=== PATIENT | female | born 1970 | race Caucasian/White ===

== ENCOUNTER → 2017-10-23 | Outpatient (CLI) | payer BC ==
--- NOTE | 2017-10-23 14:15 | US ---
EXAM DESCRIPTION: Gall Bladder CLINICAL HISTORY: RIGHT UPPER QUADRANT PAIN COMPARISON: No comparisons available at this institution. TECHNIQUE: Routine sonographic images of the right upper quadrant of the abdomen were acquired and submitted for review. FINDINGS: Liver: Size- normal Echogenicity- normal Mass- none Bile ducts- intrahepatic and extrahepatic bile ducts not dilated with common bile duct measuring 0.3 cm. Gallbladder: normal Pancreas: head and body appear normal; tail obscured by bowel gas Right kidney: normal Aorta & Inferior vena cava: visualized portions appear normal Ascites: none IMPRESSION: Unremarkable right upper quadrant ultrasound. Electronically signed by: Shaan Pinzon MD 10/23/2017 2:14 PM CDT
== END ==
LOC: US 09:34
PROVIDERS: ATTEND Family Medicine
DX: R10.11 Right upper quadrant pain (principal)

== ENCOUNTER 2017-11-20 06:45 | Emergency (ER) | payer BC ==
[2017-11-20 07:00] VITALS: TEMP 98; O2SAT 100
--- NOTE | 2017-11-20 07:50 | ED.PDOC ---
History of Present Illness - General Chief Complaint: Abdominal Pain Stated Complaint: abdominal pain Time Seen by Provider: 11/20/17 07:42 Information Source: patient, family Exam Limitations: no limitations - History of Present Illness Initial Comments: Tressa Aleman 47 y/o female stated that she had left sided sharp abdominal pains for the last 6-8 MONTHS which comes and goes non radiating not aggravated by eating,BM,URINATING and for the last 4 days pain symptoms more intense with nausea,no vomiting,no diarrhea,no hematuria,no weight loss,no fever,no melena.Still able to eat. Had Abdominal sono-negative. Abdominal Pain Onset Location: other - left side abdomen Pain Radiation: no radiation Quality: moderate, sharpness Timing/Duration: getting worse Improving Factors: nothing Worsening Factors: nothing Associated Symptoms: denies symptoms, other - see hpi Review of Systems - Review of Systems Constitutional: States: no symptoms reported EENTM: States: no symptoms reported Respiratory: States: no symptoms reported Cardiology: States: no symptoms reported Gastrointestinal/Abdominal: States: see HPI Genitourinary: States: no symptoms reported All other Systems: Reviewed and Negative, No Change from Baseline Past Medical History (General) - Patient Medical History Hx Seizures: No Hx Stroke: No Hx Dementia: No Hx Asthma: No Hx of COPD: No Hx Cardiac Disorders: Yes - heart attack, stents Hx Congestive Heart Failure: No Hx Pacemaker: No Hx Hypertension: Yes Hx Thyroid Disease: No Hx Diabetes: No Hx Gastroesophageal Reflux: No Hx Renal Disease: No Hx MRSA: Yes - Abdomen 2008 MRSA Source:: Wound Surgical History: other - btl,endometrial ablation - Social History Hx Tobacco Use: No Hx Alcohol Use: Yes - socially Hx Physical Abuse: No Hx Emotional Abuse: No - Female History Patient : No Family Medical History - Family History Mother Family History: Unknown Hx Cardiac Disease: Yes - parents Physical Exam - Physical Exam General Appearance: Alert, Anxious, No apparent distress Eyes, Ears, Nose, Throat Exam: normal ENT inspection Neck: non-tender, full range of motion, supple Respiratory: lungs clear, normal breath sounds, no respiratory distress Cardiovascular/Chest: normal peripheral pulses, regular rate, rhythm, no murmur Peripheral Pulses: No deficit Gastrointestinal/Abdominal: normal bowel sounds, soft, no organomegaly, tenderness - left side abdomen no peritoneal signs Back Exam: no CVA tenderness, no vertebral tenderness Extremity: no pedal edema, no calf tenderness Neurologic: no motor/sensory deficits, alert, oriented x 3 Skin Exam: normal color, warm/dry Progress - Progress Progress: 11/20/17 09:14 Vital Signs - 8 hr 11/20/17 11/20/17 06:51 08:40 Temperature 98.0 F 98.0 F Pulse Rate [ 59 L 51 L monitor] Respiratory 20 20 Rate Blood Pressure 159/88 152/73 [Left Arm] O2 Sat by Pulse 100 100 Oximetry 11/20/17 09:27 Patient labs,chest x ray ,abdominal ct discussed with patient no acute abnormalities note explained to jose referral to GI specialist to find out more what is causing her symptoms - Results/Orders Results/Orders: 11/20/17 07:57 Hold Metformin x 48Hrs [id number] Laboratory Results - last 24 hr 11/20/17 11/20/17 11/20/17 07:26 07:26 07:26 WBC 14.0 H RBC 4.79 Hgb 14.1 Hct 41.7 MCV 87.1 MCH 29.4 MCHC 33.8 RDW 13.7 Plt Count 261 MPV 9.9 Absolute Neuts (auto) 10.70 H Absolute Lymphs (auto) 2.30 Absolute Monos (auto) 0.90 H Absolute Eos (auto) 0.10 Absolute Basos (auto) 0.10 Neutrophils % 76.1 Lymphocytes % 16.5 L Monocytes % 6.4 Eosinophils % 0.4 L Basophils % 0.6 PT INR PTT (SP) Sodium 137 Potassium 3.6 Chloride 106 Carbon Dioxide 23 Anion Gap 11.6 L BUN 15 Creatinine 0.76 BUN/Creatinine Ratio 19.7 Random Glucose 134 H Serum Osmolality 276.6 Calcium 9.1 Total Bilirubin 0.4 Direct Bilirubin AST 23 ALT 22 Alkaline Phosphatase 67 Creatine Kinase 58 CK-MB (CK-2) 1.6 CK-MB (CK-2) % Not Reportable Troponin I < 0.02 Serum Total Protein 6.8 Albumin 4.0 Globulin 2.8 Albumin/Globulin Ratio 1.4 Lipase Urine Color Urine Appearance Urine pH Ur Specific [place] Urine Protein Urine Glucose (UA) Urine Ketones Urine Blood Urine Nitrite Urine Bilirubin Urine Urobilinogen Ur Leukocyte Esterase Urine RBC Urine WBC Ur Epithelial Cells Urine Bacteria Urine Mucus Urine HCG, Qual Urine Opiates Screen Urine Barbiturates Ur Phencyclidine Scrn U Amphetamin/Meth Scrn U Benzodiazepines Scrn U Cocaine Metab Screen U Cannabinoids Screen 11/20/17 11/20/17 11/20/17 07:28 07:35 07:35 WBC RBC Hgb Hct MCV MCH MCHC RDW Plt Count MPV Absolute Neuts (auto) Absolute Lymphs (auto) Absolute Monos (auto) Absolute Eos (auto) Absolute Basos (auto) Neutrophils % Lymphocytes % Monocytes % Eosinophils % Basophils % PT INR PTT (SP) Sodium Potassium Chloride Carbon Dioxide Anion Gap BUN Creatinine BUN/Creatinine Ratio Random Glucose Serum Osmolality Calcium Total Bilirubin Direct Bilirubin AST ALT Alkaline Phosphatase Creatine Kinase CK-MB (CK-2) CK-MB (CK-2) % Troponin I Serum Total Protein Albumin Globulin Albumin/Globulin Ratio Lipase Urine Color Yellow Urine Appearance Sl cloudy Urine pH 7.0 Ur Specific [place] 1.025 Urine Protein 30 Urine Glucose (UA) Negative Urine Ketones Trace Urine Blood Negative Urine Nitrite Negative Urine Bilirubin Negative Urine Urobilinogen 0.2 Ur Leukocyte Esterase Negative Urine RBC 0 Urine WBC 0-1 Ur Epithelial Cells 1-3 Urine Bacteria 1+ Urine Mucus Small Urine HCG, Qual Negative Urine Opiates Screen Positive H Urine Barbiturates Negative Ur Phencyclidine Scrn Negative U Amphetamin/Meth Scrn Negative U Benzodiazepines Scrn Negative U Cocaine Metab Screen Negative U Cannabinoids Screen Positive H 11/20/17 11/20/17 07:55 08:13 WBC RBC Hgb Hct MCV MCH MCHC RDW Plt Count MPV Absolute Neuts (auto) Absolute Lymphs (auto) Absolute Monos (auto) Absolute Eos (auto) Absolute Basos (auto) Neutrophils % Lymphocytes % Monocytes % Eosinophils % Basophils % PT 12.3 INR 1.060 PTT (SP) 31.1 Sodium Potassium Chloride Carbon Dioxide Anion Gap BUN Creatinine BUN/Creatinine Ratio Random Glucose Serum Osmolality Calcium Total Bilirubin Direct Bilirubin < 0.1 AST ALT Alkaline Phosphatase Creatine Kinase CK-MB (CK-2) CK-MB (CK-2) % Troponin I Serum Total Protein Albumin Globulin Albumin/Globulin Ratio Lipase 21 L Urine Color Urine Appearance Urine pH Ur Specific [place] Urine Protein Urine Glucose (UA) Urine Ketones Urine Blood Urine Nitrite Urine Bilirubin Urine Urobilinogen Ur Leukocyte Esterase Urine RBC Urine WBC Ur Epithelial Cells Urine Bacteria Urine Mucus Urine HCG, Qual Urine Opiates Screen Urine Barbiturates Ur Phencyclidine Scrn U Amphetamin/Meth Scrn U Benzodiazepines Scrn U Cocaine Metab Screen U Cannabinoids Screen - EKG/XRAY/CT XRAY: chest - no acut abnormality CT Ordered: Yes - abd/pelvis-no acute abnormalities Departure - Departure Clinical Impression: Abdominal pain Qualifiers: Abdominal location: unspecified location Qualified Code(s): R10.9 - Unspecified abdominal pain Time of Disposition: :31 Disposition: Discharge to Home or Self Care Condition: Good Departure Forms: ED Discharge - Pt. Copy, Patient Portal Self Enrollment Instructions: DI for Abdominal Pain-Adult Diet: other - avoid greasy/spicy foods Referrals: Ben Be MD [Primary Care Provider] - 1-2 Weeks Prescriptions: Gabapentin 300 mg PO BEDTIME #14 cap Home Medications: Ambulatory Orders Amoxicillin & Pot Clavulanate [Augmentin Tab] 11/20/17 Aspirin [Aspirin Adult Low Dose] 81 mg PO 11/20/17 Atorvastatin Calcium [Lipitor] 40 mg PO 11/20/17 Gabapentin 300 mg PO BEDTIME #14 cap 11/20/17 Metoprolol Succinate [Metoprolol Succinate ER] 25 mg 11/20/17 Sertraline HCl [Sertraline HCl] 100 mg 11/20/17 Verapamil HCl [Verapamil HCl Sr] 120 mg 11/20/17 Additional Instructions: Follow up with primary Md 26 November 2017
[2017-11-20] MEDS ORDERED: MORPHINE SULFATE INJ 10 MG/ML VIAL IV ONE (07:55)
[2017-11-20] MEDS ORDERED: LACTATED RINGERS 1,000 ML IVS ONE (07:55)
[2017-11-20] MEDS ORDERED: PROMETHAZINE HCL INJ 25 MG/ML VIAL IM ONE (07:55)
--- NOTE | 2017-11-20 08:23 | RAD ---
Study: Single Frontal View of the Chest. Indication:pain Comparison: February 14, 2012. Impression: Heart size normal. Lungs clear. No acute osseous abnormality. Electronically signed by: Ramana Ragland MD 11/20/2017 8:22 AM CDT
--- NOTE | 2017-11-20 09:02 | CT ---
Study: CT abdomen and pelvis. Indication: pain Technique: Venous and delayed phase CT imaging of the abdomen and pelvis obtained after intravenous administration of contrast. This exam was performed according to our departmental dose-optimization program, which includes automated exposure control, adjustment of the mA and/or kV according to patient size and/or use of iterative reconstruction technique. Comparison: None. Findings: Lower chest, liver, gallbladder, pancreas, spleen, adrenal glands, kidneys, bladder, uterus, and bilateral adnexa are unremarkable. Trace free pelvic fluid. Stomach, small bowel, colon, and appendix unremarkable. No free fluid. No free air. No pathologically enlarged lymphadenopathy. Atherosclerosis aorta. No acute osseous abnormality. Impression: No CT evidence of acute abdominal or pelvic process. Trace free pelvic fluid. Atherosclerosis. Electronically signed by: Ramana Ragland MD 11/20/2017 9:00 AM CDT
[2017-11-20 09:42] VITALS: BP 154/82
== END 2017-11-20 09:44 | disposition home or self-care (01) ==
LOC: ER 06:45
DX: R10.9 Unspecified abdominal pain (principal); R11.0 Nausea; I25.2 Old myocardial infarction; I10 Essential (primary) hypertension; Z98.61 Coronary angioplasty status
CPT/HCPCS: 36415; 71045; 74177; 80053; 80307; 81001; 81025; 82248; 82550; 82553; 83690; 84484; 85025; 85610; 85730; J2270; J2550; J7120

== ENCOUNTER → 2018-03-27 | Outpatient (CLI) | payer BC ==
--- NOTE | 2018-03-27 16:28 | NM ---
EXAM DESCRIPTION: Hepatobiliary w/o CCK: Nuclear Medicine. CLINICAL HISTORY: RUQ PAIN COMPARISON: None. TECHNIQUE: Patient was given 7.8 mCi of technetium 99 M mebrofenin (Choletec) radiopharmaceutical IV. Anterior gamma camera images were obtained of the right upper quadrant at 1 minute intervals for one hour . The patient was then given 8 ounces ensure plus fatty meal with 11 fat g. Gallbladder ejection fraction was evaluated by measuring diminishing radioactivity in the gallbladder, over 30 min interval. FINDINGS: After administration of reniform cervical IV, the liver was well-visualized in all segments. Timely visualization of intrahepatic ducts, gallbladder, extrahepatic ducts, and intestine. After patient ingested fatty meal, no reproduction of symptoms. After counts were obtained for 30 minutes in the gallbladder, the decrease in activity over this interval was 50%. IMPRESSION: 1. No intrahepatic or extrahepatic biliary obstruction. Gallbladder and intestine were visualized. 2. Gallbladder ejection fraction was 50% which is well above the low normal value of 35%. Electronically signed by: Rey Curran MD 03/27/2018 4:27 PM CDT
== END ==
LOC: NM 09:54
PROVIDERS: ATTEND Family Medicine
DX: R11.10 Vomiting, unspecified (principal); R10.12 Left upper quadrant pain
CPT/HCPCS: 78226; A9537

== ENCOUNTER → 2018-05-23 | Outpatient (CLI) | payer BC ==
--- NOTE | 2018-05-23 10:36 | RAD ---
Three-view right hand. 4 view right wrist. Three-view left hand. 4 view left wrist. Indication: PAIN IN BILATERAL HANDS AND WRISTS Comparison: None. Impression: No acute fracture or malalignment of the left hand/wrist or right hand/wrist. No osseous erosions or periarticular osteopenia of either hand or wrist. There is mild joint space narrowing throughout the PIP and DIP joints of the bilateral hands. Trace negative ulnar variance bilaterally. Soft tissues are intact without radiopaque foreign body. Electronically signed by: Ramana Ragland MD 05/23/2018 10:35 AM [facility]
--- NOTE | 2018-05-23 10:37 | RAD ---
Three-view right hand. 4 view right wrist. Three-view left hand. 4 view left wrist. Indication: PAIN IN BILATERAL HANDS AND WRISTS Comparison: None. Impression: No acute fracture or malalignment of the left hand/wrist or right hand/wrist. No osseous erosions or periarticular osteopenia of either hand or wrist. There is mild joint space narrowing throughout the PIP and DIP joints of the bilateral hands. Trace negative ulnar variance bilaterally. Soft tissues are intact without radiopaque foreign body. Electronically signed by: Ramana Ragland MD 05/23/2018 10:35 AM [facility]
--- NOTE | 2018-05-23 10:37 | RAD ---
Three-view right hand. 4 view right wrist. Three-view left hand. 4 view left wrist. Indication: PAIN IN BILATERAL HANDS AND WRISTS Comparison: None. Impression: No acute fracture or malalignment of the left hand/wrist or right hand/wrist. No osseous erosions or periarticular osteopenia of either hand or wrist. There is mild joint space narrowing throughout the PIP and DIP joints of the bilateral hands. Trace negative ulnar variance bilaterally. Soft tissues are intact without radiopaque foreign body. Electronically signed by: Ramana Ragland MD 05/23/2018 10:35 AM [facility]
--- NOTE | 2018-05-23 10:37 | RAD ---
Three-view right hand. 4 view right wrist. Three-view left hand. 4 view left wrist. Indication: PAIN IN BILATERAL HANDS AND WRISTS Comparison: None. Impression: No acute fracture or malalignment of the left hand/wrist or right hand/wrist. No osseous erosions or periarticular osteopenia of either hand or wrist. There is mild joint space narrowing throughout the PIP and DIP joints of the bilateral hands. Trace negative ulnar variance bilaterally. Soft tissues are intact without radiopaque foreign body. Electronically signed by: Ramana Ragland MD 05/23/2018 10:35 AM [facility]
== END ==
LOC: RAD 08:54
PROVIDERS: ATTEND Orthopaedic Surgery
DX: M79.641 Pain in right hand (principal); M79.642 Pain in left hand; M25.531 Pain in right wrist; M25.532 Pain in left wrist

== ENCOUNTER 2018-05-28 05:59 | Day surgery (SDC) | payer BC ==
[2018-05-28] MEDS ORDERED: SODIUM CHL 0.9% 100ML MINI-BAG 100 ML IVPB ONE (06:05)
[2018-05-28] MEDS ORDERED: LACTATED RINGERS 1,000 ML ONE (06:05)
[2018-05-28] MEDS ORDERED: ceFAZolin SODIUM 1 GM VIAL ONE ×2 (06:05→08:20)
[2018-05-28] MEDS ORDERED: BUPIVACAINE 0.25% INJ 30 ML VIAL INJ ONE (08:19)
[2018-05-28] MEDS ORDERED: LIDOCAINE 1% 10 ML VIAL INJ ONE (08:20)
[2018-05-28] MEDS ORDERED: VANCOMYCIN HCL INJ 1,000 MG VIAL IVPB ONE (08:20)
[2018-05-28] MEDS ORDERED: MIDAZOLAM INJ 2 MG/2 ML VIAL ONE (09:17)
[2018-05-28] MEDS ORDERED: fentaNYL CITRATE INJ 50 MCG/ML AMP ONE (09:17)
[2018-05-28] MEDS ORDERED: PROPOFOL 200 MG/20 ML VIAL IV ONE (10:00)
[2018-05-28 10:15] VITALS: TEMP 97.1
[2018-05-28 11:04] VITALS: BP 163/79; O2SAT 98
--- NOTE | 2018-05-30 13:26 | OP ---
DATE OF PROCEDURE: 05/28/18 PREOPERATIVE DIAGNOSIS: 1. Carpal tunnel syndrome. POSTOPERATIVE DIAGNOSIS: 1. Carpal tunnel syndrome. PROCEDURE: 1. Carpal tunnel release. SURGEON: Marshal Carroll MD. CONCRETE VAULT MAKER: Rey Pierre CST, SA-C. ANESTHESIA: Local with sedation. COMPLICATIONS: None. FINDINGS: Thickening of the transverse carpal ligament. INDICATION: Ms. Aleman has a history of ongoing and worsening numbness in the distribution of the median nerve. She has tried conservative measures, however, has failed to gain relief. Because of her ongoing symptoms, she has requested operative intervention. After discussing the risks, benefits and alternatives to that, the patient has given informed consent for carpal tunnel release. PROCEDURE: The patient was brought to the Operating Room and placed in the supine position. Sedation was administered and local anesthetic was injected into the operative area under sterile conditions. After the injection of anesthetic, the arm was sterilely prepped and draped. A longitudinal incision was made directly overlying the transverse carpal ligament and blunt dissection was carried down to the ligament. The transverse carpal ligament was sharply transected along its length and a Dalzell elevator was used to ensure complete release of the ligament. Once release had been confirmed, the wound was thoroughly irrigated and the wound was closed with Nylon suture. A sterile dressing was placed and the patient was taken to the Day Surgery Unit. POSTOPERATIVE PLAN: The patient has been encouraged to do range of motion of the digits and will followup with us in two days. #[id number] MTDD
== END 2018-05-28 10:50 | disposition home or self-care (01) ==
LOC: AMB 05:59
PROVIDERS: ATTEND Orthopaedic Surgery
DX: G56.01 Carpal tunnel syndrome, right upper limb (principal); I25.10 Atherosclerotic heart disease of native coronary artery without angina pectoris; I10 Essential (primary) hypertension; I25.2 Old myocardial infarction; Z95.5 Presence of coronary angioplasty implant and graft; Z88.8 Allergy status to other drugs, medicaments and biological substances; Z79.82 Long term (current) use of aspirin; Z79.899 Other long term (current) drug therapy
CPT/HCPCS: 01810; 64721; 80307; 87070; J0690; J2250; J3010; J3370; J3490; J7050; J7120

== ENCOUNTER 2018-06-07 05:55 | Day surgery (SDC) | payer BC ==
--- NOTE | 2018-06-06 12:38 | HP ---
CHIEF COMPLAINT: Left hand numbness and pain. HISTORY OF PRESENT ILLNESS: Tressa is a 47-year-old female with a history of numbness and pain in the hand. She has undergone right carpal tunnel release and is requesting left carpal tunnel release. After discussing the risks, benefits and alternatives to that, she has given informed consent. PAST SURGICAL HISTORY: 1. Cardiac stent placement. 2. Endometrial ablation. 3. Right carpal tunnel release. MEDICATIONS: 1. Aspirin. 2. Verapamil. 3. Metoprolol. 4. Lipitor. 5. Zoloft. ALLERGIES: CIPRO. CODE STATUS: Full code. IMMUNIZATIONS: Up to date. FAMILY HISTORY: None pertinent to today's complaint. SOCIAL HISTORY: The patient does not drink, smoke or use any illicit drugs. REVIEW OF SYSTEMS: Negative except as indicated in the History of Present Illness. PHYSICAL EXAMINATION: VITAL SIGNS: Blood pressure 130/70. Pulse 60. Height 5'4". Weight 190 pounds. MENTAL STATUS: The patient is awake, alert, and is able to give a good history and participate in the physical. The patient is oriented to person, place and time. SKIN: Normal tone and turgor. MUSCULOSKELETAL: She has positive carpal compression test. She has intact strength and the hand is warm and well perfused. She has no deformity or malalignment. She does have some slight thenar atrophy. She has full abduction strength and negative Tinel's at the elbow. ASSESSMENT: 1. Carpal tunnel syndrome. PLAN: The plan at this point is for carpal tunnel release. We have discussed the risks, benefits, and alternatives to that and the patient has given informed consent. #[id number] [facility]
[2018-06-07] MEDS ORDERED: SODIUM CHL 0.9% 100ML MINI-BAG 100 ML IVPB ONE (07:32)
[2018-06-07] MEDS ORDERED: LACTATED RINGERS 1,000 ML ONE (07:33)
[2018-06-07] MEDS ORDERED: ceFAZolin SODIUM 1 GM VIAL ONE ×2 (07:33→10:59)
[2018-06-07] MEDS ORDERED: PROPOFOL 200 MG/20 ML VIAL IV ONE (10:00)
[2018-06-07] MEDS ORDERED: LIDOCAINE 1% 10 ML VIAL INJ ONE ×2 (10:00→10:59)
[2018-06-07] MEDS ORDERED: VANCOMYCIN HCL INJ 1,000 MG VIAL IVPB ONE (10:59)
[2018-06-07] MEDS ORDERED: BUPIVACAINE 0.25% INJ 30 ML VIAL INJ ONE (10:59)
[2018-06-07] MEDS ORDERED: fentaNYL CITRATE INJ 50 MCG/ML AMP ONE (11:10)
[2018-06-07] MEDS ORDERED: MIDAZOLAM INJ 2 MG/2 ML VIAL ONE ×2 (11:10→11:17)
[2018-06-07 12:27] VITALS: BP 138/74; TEMP 97; O2SAT 100
--- NOTE | 2018-06-13 09:12 | OP ---
DATE OF PROCEDURE: 06/07/18 PREOPERATIVE DIAGNOSIS: 1. Carpal tunnel syndrome, left hand. POSTOPERATIVE DIAGNOSIS: 1. Carpal tunnel syndrome, left hand. PROCEDURE: 1. Carpal tunnel release, left hand. SURGEON: Marshal Carroll MD. MEDICAL MANAGEMENT SPECIALIST: Rey Pierre CST, SA-C. ANESTHESIA: Local with sedation. COMPLICATIONS: None. FINDINGS: Thickening of the transverse carpal ligament and narrowing of the median nerve across the carpal tunnel. INDICATION: Ms. Aleman has a history of pain and numbness in the hand. Secondary to ongoing pain and numbness, she has requested operative intervention. After discussing the risks, benefits and alternatives to that, the patient has given informed consent for carpal tunnel release. PROCEDURE: The patient was brought to the Operating Room and placed in the supine position. Sedation was administered and local anesthetic was injected into the operative area under sterile conditions. After the injection of anesthetic, the arm was sterilely prepped and draped. A longitudinal incision was made directly overlying the transverse carpal ligament and blunt dissection was carried down to the ligament. The transverse carpal ligament was sharply transected along its length and a Marshall elevator was used to ensure complete release of the ligament. Once release had been confirmed, the wound was thoroughly irrigated and the wound was closed with Nylon suture. A sterile dressing was placed and the patient was taken to the Day Surgery Unit. POSTOPERATIVE PLAN: The patient has been encouraged to do range of motion of the digits and will followup with us in two days. #[id number] MTDD
== END 2018-06-07 12:30 | disposition home or self-care (01) ==
LOC: AMB 05:55
PROVIDERS: ATTEND Orthopaedic Surgery
DX: G56.02 Carpal tunnel syndrome, left upper limb (principal); I10 Essential (primary) hypertension; E66.9 Obesity, unspecified; Z88.8 Allergy status to other drugs, medicaments and biological substances; Z95.5 Presence of coronary angioplasty implant and graft; Z79.82 Long term (current) use of aspirin; Z79.899 Other long term (current) drug therapy
CPT/HCPCS: 01810; 64721; 80307; 81025; 87070; J0690; J2250; J3010; J3370; J3490; J7050; J7120

== ENCOUNTER → 2019-12-04 | Outpatient (CLI) | payer SELFPAY | DX: R07.2 Precordial pain (principal) ==